=== PATIENT | female | born 1950 | race Caucasian/White ===

== ENCOUNTER 2019-06-17 18:36 | Emergency (ER) | payer MEDICARE, OTHER ==
[2019-06-17 19:04] LABS: #Basophils 0.1 thou/uL (0.0-0.2); #Eosinphils 0.2 thou/uL (0.0-0.7); #Lymphocytes 2.2 thou/uL (1.20-3.40); #Monocytes 0.4 thou/uL (0.11-0.59); #Neutrophils 3.3 thou/uL (1.40-6.50); %Basophils 1.7 % (0.0-1.0); %Eosinophils 3.6 % (0.0-10.0); %Lymphocytes 35.5 % (21.0-51.0); %Monocytes 6.9 % (0.0-10.0); %Neutrophils 52.2 % (42.0-75.0); Hemoglobin 13.9 g/dL (12.0-16.0); Mean Corpuscular HGB CONC 34.3 g/dL (32.0-36.0); Mean Corpuscular Hemoglobin 29.8 pg (27.0-31.0); Mean Corpuscular Volume 86.7 fL (78.0-98.0); Mean Platelet Volume 6.7 fL (7.4-10.4); Platelet Count 259 thou/uL (130-400); RBC Distribution Width 11.8 % (11.5-14.5); Red Blood Cell (RBC) Count 4.67 mill/uL (4.20-5.40); White Blood Cell (WBC) Count 6.3 thou/uL (4.8-10.8)
[2019-06-17 19:20] LABS: ALT (SGPT) 8 U/L (8-55); AST (SGOT) 14 U/L (5-34); Albumin 4.4 g/dL (3.4-4.8); Alkaline Phosphatase 84 U/L (40-110); Anion Gap 14 mmol/L (10-20); BUN (Urea Nitrogen) 9 mg/dL (9.8-20.1); Bilirubin, Total 0.3 mg/dL (0.2-1.2); Calc. Creatinine Clearance 0 mL/min (70-130); Calcium 9.8 mg/dL (7.8-10.44); Carbon Dioxide 25 mmol/L (23-31); Chloride 99 mmol/L (98-107); Estimated GFR-MDRD 80; Globulin 2.6 g/dL (2.4-3.5); Glucose 85 mg/dL (80-115); Lipase 23 U/L (8-78); Potassium 4.2 mmol/L (3.5-5.1); Sodium 134 mmol/L (136-145)
[2019-06-17] MEDS ORDERED: Ketorolac Tromethamine 30 MG/ML VIAL ONE (19:22)
--- NOTE | 2019-06-17 20:26 | ULT ---
Gallbladder ultrasound: Multiple grayscale images of right upper quadrant obtained according to protocol. INDICATION: Pain FINDINGS: Liver: Normal Gallbladder: There are multiple foci of mural-based increased echogenicity, subcentimeter in size, an d hyperechoic. No associated shadowing. The gallbladder is contracted. Gallbladder wall: Normal. A positive Rubio sign is not reported by the director sales. Common bile duct is normal. Ascites: None IMPRESSION: Foci of increased echogenicity along the gallbladder wall which may be on the basis of multiple gallb ladder polyps. Tumefactive sludge and/or adherent nonshadowing cholelithiasis are additional considerations. Contracted gallbladder.
== END 2019-06-17 21:05 | disposition home or self-care (01) ==
LOC: SCSER 18:36
DX: K82.4 Cholesterolosis of gallbladder (principal); E03.9 Hypothyroidism, unspecified; G43.909 Migraine, unspecified, not intractable, without status migrainosus; F41.9 Anxiety disorder, unspecified; F32.9 Major depressive disorder, single episode, unspecified; Z79.899 Other long term (current) drug therapy
CPT/HCPCS: 76705; 80053; 83690; 85025; 96374; J1885

== ENCOUNTER 2019-06-19 13:03 | Outpatient (CLI) | payer MEDICARE, OTHER ==
[~2019-06-19 13:03] MED LIST: Iopamidol 370 76% 100 ML VIAL ONE
--- NOTE | 2019-06-19 15:56 | CT ---
CT abdomen and pelvis with IV and oral contrast HISTORY: Abdominal pain and bloating. FINDINGS: Calcified granulomata at the lung bases. Bilateral breast implants partially visualized. An oval 1.7 cm low-density lesion involves the left adrenal gland. Hounsfield unit measurement and contrast administration precludes confirmation as an adenoma. Calcification within the arterial struc tures. Large amount of stool is present within the colon. The cecum is positioned within the left mid abdomen. 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 No ac tive pathology of this is evident. Dorsal column stimulator leads and electronic device in place. Urinary bladder is unremarkable. Degen erative changes lumbar spine. IMPRESSION: No acute abnormalities are demonstrated to explain abdominal pain. Incidental note of a left adrenal mass, 1.7 cm. Probably an adenoma, but further evaluation needed. Nilson munroe consider dedicated CT abdomen, with and without IV contrast, employing an adrenal adenoma protocol, for better characterization. Congenital anomaly of the colon. Cecum is in the mid left abdomen. Atherosclerosis.
== END 2019-06-19 13:04 | disposition home or self-care (01) ==
LOC: SCSCT 13:03
PROVIDERS: ATTEND Physician Assistant Medical
DX: R10.9 Unspecified abdominal pain (principal); R14.0 Abdominal distension (gaseous); E27.8 Other specified disorders of adrenal gland; Q43.9 Congenital malformation of intestine, unspecified; I70.90 Unspecified atherosclerosis
CPT/HCPCS: 74177; Q9967

== ENCOUNTER 2019-06-25 10:26 | Day surgery (SDC) | payer MEDICARE, OTHER ==
[2019-06-23 16:25] VITALS: BMI 28.7
[2019-06-23 17:33] LABS: #Basophils 0.1 thou/uL (0.0-0.2); #Eosinphils 0.3 thou/uL (0.0-0.7); #Lymphocytes 3.1 thou/uL (1.20-3.40); #Monocytes 0.6 thou/uL (0.11-0.59); #Neutrophils 4.2 thou/uL (1.40-6.50); %Eosinophils 3.1 % (0.0-10.0); %Lymphocytes 37.2 % (21.0-51.0); %Monocytes 7.8 % (0.0-10.0); %Neutrophils 50.8 % (42.0-75.0); Hemoglobin 14.2 g/dL (12.0-16.0); Mean Corpuscular HGB CONC 34.3 g/dL (32.0-36.0); Mean Corpuscular Hemoglobin 30.2 pg (27.0-31.0); Mean Platelet Volume 7.4 fL (7.4-10.4); Platelet Count 279 thou/uL (130-400); RBC Distribution Width 11.8 % (11.5-14.5); Red Blood Cell (RBC) Count 4.69 mill/uL (4.20-5.40); White Blood Cell (WBC) Count 8.2 thou/uL (4.8-10.8)
[2019-06-23 17:55] LABS: Anion Gap 11 mmol/L (10-20); BUN (Urea Nitrogen) 12 mg/dL (9.8-20.1); Calc. Creatinine Clearance 93 mL/min (70-130); Calcium 9.4 mg/dL (7.8-10.44); Carbon Dioxide 25 mmol/L (23-31); Chloride 97 mmol/L (98-107); Estimated GFR-MDRD 79; Glucose 78 mg/dL (80-115); Potassium 4.4 mmol/L (3.5-5.1); Sodium 129 mmol/L (136-145)
[2019-06-25] MEDS ORDERED: Bupivacaine/Epinephrine 0.25% 30 ML VIAL ONE (10:42)
[2019-06-25] MEDS ORDERED: Midazolam HCl 2 mg/2 ml Vial ONE (11:11)
[2019-06-25] MEDS ORDERED: Fentanyl 100 MCG/2 ML VIAL ONE ×2 (11:11→12:59)
[2019-06-25 11:29] LABS: ALT (SGPT) 9 U/L (8-55); AST (SGOT) 13 U/L (5-34); Albumin 4.4 g/dL (3.4-4.8); Alkaline Phosphatase 76 U/L (40-110); Bilirubin, Direct 0.2 mg/dL (0.1-0.3); Bilirubin, Total 0.4 mg/dL (0.2-1.2)
--- NOTE | 2019-06-25 16:16 | OP ---
DATE OF PROCEDURE: 06/25/2019 PREOPERATIVE DIAGNOSIS: Symptomatic gallstones. POSTOPERATIVE DIAGNOSIS: Symptomatic gallstones. PROCEDURE PERFORMED: Laparoscopic cholecystectomy. ANESTHESIA: General. ESTIMATED BLOOD LOSS: Minimal. COMPLICATIONS: None. SPECIMEN: Gallbladder. FINDINGS: Chronic cholecystitis. PROCEDURE IN DETAIL: The patient was taken to the operating room and laid supine on the operating room table. After general anesthetic was obtained, the abdomen was prepped and draped in a sterile fashion. A curved incision was made below the umbilicus. Cautery was used to dissect down to the umbilical fascia. Umbilical fascia was incised and held up using a Lico. The abdominal cavity was entered using a [place] clamp. Holding stitch of Vicryl was placed on each side of the fascia. Tucker trocar was placed. High-flow pneumoperitoneum was obtained. An upper midline 5 mm port and 2 right upper quadrant 5 mm ports were placed under direct camera visualization. The gallbladder was retracted from the gallbladder fossa. The peritoneum of the gallbladder was opened anteriorly and posteriorly. The critical view triangle was seen showing only the cystic duct and cystic artery branching from medial to lateral. There were no other branching structures. Two clips were placed proximally on the cystic duct and one laterally. It was cut using laparoscopic scissors. The cystic artery was taken in the same way. Electrocautery was then used to dissect the gallbladder out of the gallbladder fossa. The gallbladder was placed in an Endo catch bag and brought out through the Tucker. There was no bleeding or bile in the liver bed. The cystic duct stump and cystic artery stump were intact, without evidence of extravasation or bleeding. All port sites were infiltrated using local anesthesia. All ports were removed under camera visualization. Pneumoperitoneum was let down. The Vicryl was used to close the fascial defect below the umbilicus. All incisions were irrigated and closed using 4-0 Monocryl and Dermabond. The patient was en route to Recovery in stable condition. All instrument counts, needle counts and lap counts were correct. Job ID: [id number]
== END 2019-06-25 14:35 | disposition home or self-care (01) ==
LOC: SDC 10:26
PROVIDERS: ATTEND Surgery
PROC: 0FT44ZZ Resection of Gallbladder, Percutaneous Endoscopic Approach (ICD-10-PCS; principal; 2019-06-25)
DX: K81.1 Chronic cholecystitis (principal); F41.9 Anxiety disorder, unspecified; F32.9 Major depressive disorder, single episode, unspecified; Z79.899 Other long term (current) drug therapy; Z91.041 Radiographic dye allergy status
CPT/HCPCS: 36415; 80048; 80076; 85025; 88304; J0690; J2250; J3010

== ENCOUNTER 2021-09-20 19:32 | Inpatient (IN) | payer MEDICARE, OTHER ==
[2021-09-20 20:10] LABS: #Monocytes 0.5 thou/uL (0.11-0.59); #Neutrophils 2.9 thou/uL (1.40-6.50); %Basophils 0.9 % (0.0-1.0); %Eosinophils 0.1 % (0.0-10.0); %Lymphocytes 22.5 % (21.0-51.0); %Monocytes 11.7 % (0.0-10.0); %Neutrophils 64.8 % (42.0-75.0); Mean Corpuscular HGB CONC 34.8 g/dL (32.0-36.0); Mean Corpuscular Hemoglobin 30.4 pg (27.0-31.0); Mean Corpuscular Volume 87.4 fL (78.0-98.0); Mean Platelet Volume 7.1 fL (7.4-10.4); Platelet Count 243 thou/uL (130-400); RBC Distribution Width 12.7 % (11.5-14.5); Red Blood Cell (RBC) Count 4.59 mill/uL (4.20-5.40); White Blood Cell (WBC) Count 4.4 thou/uL (4.8-10.8)
[2021-09-20 20:37] LABS: ALT (SGPT) 13 U/L (8-55); AST (SGOT) 27 U/L (5-34); Alkaline Phosphatase 73 U/L (40-110); Anion Gap 16 mmol/L (10-20); BUN (Urea Nitrogen) 8 mg/dL (9.8-20.1); Bilirubin, Total 0.6 mg/dL (0.2-1.2); Calc. Creatinine Clearance 0 mL/min (70-130); Calcium 8.5 mg/dL (7.8-10.44); Carbon Dioxide 19 mmol/L (23-31); Chloride 98 mmol/L (98-107); Globulin 2.6 g/dL (2.4-3.5); Glucose 91 mg/dL (83-110); Potassium 3.5 mmol/L (3.5-5.1); Protein, Total 6.6 g/dL (5.8-8.1); Sodium 129 mmol/L (136-145)
[2021-09-20] MEDS ORDERED: Azithromycin 500 MG VIAL ONE (20:37)
[2021-09-20] MEDS ORDERED: Aspirin 325 MG TAB ONE (20:37)
[2021-09-20] MEDS ORDERED: cefTRIAXone\\ROCEPHIN 2 GM VIAL ONE (20:37)
[2021-09-20 21:07] LABS: Bilirubin Negative (Negative); Blood, Urine Negative (Negative); Clarity Clear (Clear); Glucose, Urine (Dipstick) Normal (Negative); Ketone, Urine Trace mg/dL (Negative); Leukocyte Negative Leu/uL (Negative); Nitrite Negative (Negative); Protein, Urine (Dipstick) Negative (Neg-Trace); Specific Gravity, Urine 1.015 (1.002-1.036); Urobilinogen Normal mg/dL (Less than 2)
[2021-09-20 21:08] LABS: Magnesium 1.7 mg/dL (1.6-2.6)
[2021-09-20 21:09] LABS: Acetaminophen Less than 6.0 mcg/mL (10.0-30.0); Alcohol Less than 10 mg/dL (Less than 10); Salicylate Less than 8.0 mg/dL (15.0-30.0)
[2021-09-20] MEDS ORDERED: Diltiazem 125 MG/25 ML ONE (21:09)
[2021-09-20 21:14] LABS: Amphetamine Not Detected (NotDetected); Barbiturates Screen Not Detected (NotDetected); Benzodiazepine Screen Not Detected (NotDetected); Cocaine Metabolite Screen Not Detected (NotDetected); Methadone Not Detected (NotDetected); Methamphetamine Not Detected (NotDetected); Opiate Screen Not Detected (NotDetected); Oxycodone Screen Not Detected (NotDetected); Phencyclidine (PCP) Not Detected (NotDetected); THC/Cannabinoid Screen Not Detected (NotDetected); Tricyclic Screen Not Detected (NotDetected)
[2021-09-20] MEDS ORDERED: Ondansetron ODT 4 MG TAB SL PRN (21:30)
[2021-09-20] MEDS ORDERED: Sodium Chloride 0.9% 1,000 ML IV SCH (21:30)
[2021-09-20] MEDS ORDERED: Ondansetron PF 4 MG/2 ML Vial IVP PRN (21:30)
[2021-09-20] MEDS ORDERED: Acetaminophen 325 MG TAB PO PRN (21:30)
[2021-09-20 23:33] LABS: Troponin I 0.017 ng/mL (< 0.028)
[2021-09-21] MEDS ORDERED: Guaifenesin DM 100-10/5 ML UDCUP PO PRN (02:04)
[2021-09-21] MEDS ORDERED: Calcium Carbonate 500 MG ChewTAB PO PRN (02:04)
[2021-09-21] MEDS ORDERED: Sodium Chloride 0.9% 1,000 ML IV SCH (02:43)
[2021-09-21 04:29] LABS: SARS-CoV-2 NAA Rapid Test DETECTED (NotDetected)
[2021-09-21] MEDS ORDERED: Pharmacy to Dose REMDESIVIR IVPB PRN (04:57)
[2021-09-21 05:43] LABS: Hemoglobin 13.5 g/dL (12.0-16.0); Mean Corpuscular HGB CONC 32.7 g/dL (32.0-36.0); Mean Corpuscular Hemoglobin 29.9 pg (27.0-31.0); Mean Corpuscular Volume 91.3 fL (78.0-98.0); Mean Platelet Volume 7.6 fL (7.4-10.4); Platelet Count 219 thou/uL (130-400); Red Blood Cell (RBC) Count 4.51 mill/uL (4.20-5.40); White Blood Cell (WBC) Count 4.5 thou/uL (4.8-10.8)
[2021-09-21 05:56] LABS: ALT (SGPT) 12 U/L (8-55); AST (SGOT) 23 U/L (5-34); Albumin 3.5 g/dL (3.4-4.8); Alkaline Phosphatase 63 U/L (40-110); Anion Gap 13 mmol/L (10-20); BUN (Urea Nitrogen) 7 mg/dL (9.8-20.1); Bilirubin, Total 0.4 mg/dL (0.2-1.2); Calc. Creatinine Clearance 0 mL/min (70-130); Calcium 8.2 mg/dL (7.8-10.44); Carbon Dioxide 20 mmol/L (23-31); Cardiac Risk 3.3 (Less than 4.5); Chloride 105 mmol/L (98-107); Cholesterol 150 mg/dl (< 200 Desired); Globulin 2.8 g/dL (2.4-3.5); Glucose 78 mg/dL (83-110); HDL Cholesterol 45 mg/dL (>60 Neg Risk); LDL Cholesterol, Calculated 87 mg/dL; Potassium 3.2 mmol/L (3.5-5.1); Protein, Total 6.3 g/dL (5.8-8.1); Sodium 135 mmol/L (136-145); Triglycerides 92 mg/dL (Less than 150)
[2021-09-21 05:58] LABS: Hemoglobin A1c 5.2 % (4.0-6.0)
[2021-09-21 06:12] LABS: Band 8 % (5-11); Burr Cells MODERATE= 6-15 cells (100X) (0-1/hpf); Elliptocytes SLIGHT = 2-5 cells (100X) (0-1/hpf); Lymphocytes 20 % (21-51); MDiff Complete? YES; Monocytes 11 % (0-10); Neutrophil 61 % (42-75); Platelet Morphology Comment Appears Adequate; Schistocytes SLIGHT = 2-5 cells (100X) (0-1/hpf)
[2021-09-21] MEDS ORDERED: Lorazepam 0.5 MG TAB PO PRN (06:58)
[2021-09-21] MEDS ORDERED: Potassium Chloride 20 MEQ TAB PO SCH (07:30)
[2021-09-21] MEDS ORDERED: Enoxaparin Sodium 40 MG/0.4 ML SYRINGE SC SCH (09:00)
[2021-09-21] MEDS: Diltiazem 125 MG in Sodium Chloride 0.9% 100 ML IVPB SCH ×2 (10:26→22:26)
[2021-09-21] MEDS ORDERED: ANTICOAG Communication Order-Pharmacy FS ONE (11:17)
[2021-09-21 11:43] LABS: Hemoglobin 13.3 g/dL (12.0-16.0); Platelet Count 223 thou/uL (130-400)
[2021-09-21] MEDS: Famotidine/PF 20 mg/2ml Vial SLOW IVP SCH ×2 (11:50→20:58)
[2021-09-21] MEDS: Ascorbic Acid 500 mg Chewable Tablet PO SCH (11:51)
[2021-09-21] MEDS: Cholecalciferol (Vitamin D3) 400 UNITS TAB PO SCH (11:51)
[2021-09-21] MEDS: Zinc Sulfate 220 MG CAP PO SCH (11:51)
[2021-09-21] MEDS ORDERED: FLU VACC QS2021-22(65YR UP)/PF 240 MCG/0.7 ML SYRINGE IM ONE (13:30)
[2021-09-21] MEDS ORDERED: Promethazine HCl 12.5 MG in Sodium Chloride 0.9% 50 ML IVPB PRN (17:54)
[2021-09-21] MEDS: cefTRIAXone\\ROCEPHIN 2 GM in Sodium Chloride 0.9% 100 ML IVPB SCH (20:55)
[2021-09-21] MEDS: Enoxaparin Sodium 80 MG/0.8 ML SYRINGE SC SCH (20:57)
[2021-09-21] MEDS: DULoxetine 60 MG CAP PO SCH (20:57)
[2021-09-21] MEDS: busPIRone HCl 10 MG TAB PO SCH (20:57)
[2021-09-21] MEDS: Rosuvastatin 5 MG TAB PO SCH (20:58)
[2021-09-21] MEDS: Sacubitril 49 MG/Valsartan 51 MG TABLET PO SCH (20:58)
[2021-09-21] MEDS: Azithromycin 500 MG in Sodium Chloride 0.9% 250 ML 250 ML IVPB SCH (22:26)
[2021-09-22] MEDS ORDERED: Diltiazem 125 MG in Sodium Chloride 0.9% 100 ML IVPB SCH (01:25)
[2021-09-22 08:32] LABS: Anion Gap 15 mmol/L (10-20); BUN (Urea Nitrogen) 8 mg/dL (9.8-20.1); Calc. Creatinine Clearance 125 mL/min (70-130); Calcium 8.2 mg/dL (7.8-10.44); Carbon Dioxide 18 mmol/L (23-31); Chloride 102 mmol/L (98-107); Glucose 93 mg/dL (83-110); Sodium 132 mmol/L (136-145)
[2021-09-22 08:33] LABS: Hemoglobin 12.6 g/dL (12.0-16.0); Mean Corpuscular HGB CONC 34.1 g/dL (32.0-36.0); Mean Platelet Volume 7.4 fL (7.4-10.4); Platelet Count 221 thou/uL (130-400); RBC Distribution Width 12.7 % (11.5-14.5); White Blood Cell (WBC) Count 3.9 thou/uL (4.8-10.8)
[2021-09-22 09:29] LABS: Band 12 % (5-11); Lymphocytes 20 % (21-51); MDiff Complete? YES; Monocytes 6 % (0-10); Neutrophil 60 % (42-75); RBC Morphology Normal; Reactive Lymphocytes 1 % (0-10)
[2021-09-22] MEDS: busPIRone HCl 10 MG TAB PO SCH ×2 (10:28→20:14)
[2021-09-22] MEDS: Aripiprazole 10 MG TAB PO SCH (10:28)
[2021-09-22] MEDS: Ascorbic Acid 500 mg Chewable Tablet PO SCH (10:29)
[2021-09-22] MEDS: Sacubitril 49 MG/Valsartan 51 MG TABLET PO SCH ×2 (10:29→20:15)
[2021-09-22] MEDS: DULoxetine 60 MG CAP PO SCH ×2 (10:29→20:14)
[2021-09-22] MEDS: Carvedilol 3.125 MG TAB PO SCH ×2 (10:29→15:38)
[2021-09-22] MEDS: Aspirin 81 mg Enteric Coated Tablet PO SCH (10:30)
[2021-09-22] MEDS: Enoxaparin Sodium 80 MG/0.8 ML SYRINGE SC SCH ×2 (10:49→20:14)
[2021-09-22] MEDS: Zinc Sulfate 220 MG CAP PO SCH (10:50)
[2021-09-22] MEDS: Cholecalciferol (Vitamin D3) 400 UNITS TAB PO SCH (10:50)
[2021-09-22] MEDS: Famotidine/PF 20 mg/2ml Vial SLOW IVP SCH ×2 (11:15→20:14)
[2021-09-22] MEDS ORDERED: Potassium Chloride 20 MEQ TAB PO SCH (14:45)
[2021-09-22] MEDS ORDERED: Acetaminophen 650 MG/20.3 ML UDCUP PO PRN (16:31)
[2021-09-22] MEDS ORDERED: Dexamethasone 4 mg/ml Vial SLOW IVP SCH (16:45)
[2021-09-22] MEDS: Dexamethasone 4 mg/ml Vial SLOW IVP SCH (16:50)
[2021-09-22] MEDS ORDERED: Carvedilol 3.125 MG TAB PO SCH (18:00)
[2021-09-22] MEDS: Azithromycin 500 MG in Sodium Chloride 0.9% 250 ML 250 ML IVPB SCH (20:10)
[2021-09-22] MEDS: Melatonin 3 MG TAB PO PRN (20:15)
[2021-09-22] MEDS: ALPRAZolam 0.25 MG TAB PO PRN (20:15)
[2021-09-22] MEDS: Rosuvastatin 5 MG TAB PO SCH (20:15)
[2021-09-22] MEDS: cefTRIAXone\\ROCEPHIN 2 GM in Sodium Chloride 0.9% 100 ML IVPB SCH (22:36)
[2021-09-23] MEDS: Dexamethasone 4 mg/ml Vial SLOW IVP SCH (10:08)
[2021-09-23] MEDS: Aspirin 81 mg Enteric Coated Tablet PO SCH (10:09)
[2021-09-23] MEDS: busPIRone HCl 10 MG TAB PO SCH ×2 (10:09→21:44)
[2021-09-23] MEDS: Carvedilol 6.25 MG TAB PO SCH ×2 (10:10→21:43)
[2021-09-23] MEDS: Aripiprazole 10 MG TAB PO SCH (10:10)
[2021-09-23] MEDS: Cholecalciferol (Vitamin D3) 400 UNITS TAB PO SCH (10:10)
[2021-09-23 12:41] LABS: Anion Gap 16 mmol/L (10-20); BUN (Urea Nitrogen) 11 mg/dL (9.8-20.1); Calc. Creatinine Clearance 114 mL/min (70-130); Calcium 8.7 mg/dL (7.8-10.44); Carbon Dioxide 18 mmol/L (23-31); Chloride 102 mmol/L (98-107); Glucose 113 mg/dL (83-110); Potassium 3.8 mmol/L (3.5-5.1); Sodium 132 mmol/L (136-145)
[2021-09-23] MEDS: Ascorbic Acid 500 mg Chewable Tablet PO SCH (15:56)
[2021-09-23] MEDS: DULoxetine 60 MG CAP PO SCH (15:56)
[2021-09-23] MEDS: Enoxaparin Sodium 80 MG/0.8 ML SYRINGE SC SCH (15:57)
[2021-09-23] MEDS: Zinc Sulfate 220 MG CAP PO SCH (15:57)
[2021-09-23] MEDS: Famotidine/PF 20 mg/2ml Vial SLOW IVP SCH ×2 (15:57→21:44)
[2021-09-23] MEDS: Sacubitril 49 MG/Valsartan 51 MG TABLET PO SCH (15:57)
[2021-09-23] MEDS: Promethazine 25 MG TAB PO PRN (16:03)
[2021-09-23] MEDS: Rosuvastatin 5 MG TAB PO SCH (21:44)
[2021-09-23] MEDS: ALPRAZolam 0.25 MG TAB PO PRN (21:44)
[2021-09-23] MEDS: cefTRIAXone\\ROCEPHIN 2 GM in Sodium Chloride 0.9% 100 ML IVPB SCH (21:45)
[2021-09-23] MEDS: Azithromycin 500 MG in Sodium Chloride 0.9% 250 ML 250 ML IVPB SCH (21:45)
[2021-09-24] MEDS: DULoxetine 60 MG CAP PO SCH ×3 (00:14→21:20)
[2021-09-24] MEDS: Enoxaparin Sodium 80 MG/0.8 ML SYRINGE SC SCH ×3 (00:16→21:20)
[2021-09-24] MEDS: Sacubitril 49 MG/Valsartan 51 MG TABLET PO SCH ×3 (00:17→21:20)
[2021-09-24 05:56] LABS: Hemoglobin 12.9 g/dL (12.0-16.0); Platelet Count 307 thou/uL (130-400)
[2021-09-24] MEDS: Aripiprazole 10 MG TAB PO SCH (07:56)
[2021-09-24] MEDS: Aspirin 81 mg Enteric Coated Tablet PO SCH (07:56)
[2021-09-24] MEDS: Carvedilol 6.25 MG TAB PO SCH ×2 (07:56→16:41)
[2021-09-24] MEDS: Ascorbic Acid 500 mg Chewable Tablet PO SCH (07:56)
[2021-09-24] MEDS: Cholecalciferol (Vitamin D3) 400 UNITS TAB PO SCH (07:57)
[2021-09-24] MEDS: busPIRone HCl 10 MG TAB PO SCH ×2 (07:57→21:20)
[2021-09-24] MEDS: Zinc Sulfate 220 MG CAP PO SCH (07:57)
[2021-09-24] MEDS: Famotidine/PF 20 mg/2ml Vial SLOW IVP SCH ×2 (07:58→21:20)
[2021-09-24] MEDS: Dexamethasone 4 mg/ml Vial SLOW IVP SCH (07:58)
[2021-09-24] MEDS: ALPRAZolam 0.25 MG TAB PO PRN (13:55)
[2021-09-24] MEDS: cefTRIAXone\\ROCEPHIN 2 GM in Sodium Chloride 0.9% 100 ML IVPB SCH (20:06)
[2021-09-24] MEDS: Melatonin 3 MG TAB PO PRN (21:20)
[2021-09-24] MEDS: Azithromycin 500 MG in Sodium Chloride 0.9% 250 ML 250 ML IVPB SCH (21:20)
[2021-09-24] MEDS: Rosuvastatin 5 MG TAB PO SCH (21:20)
[2021-09-24] MEDS: Promethazine 25 MG TAB PO PRN (23:39)
[2021-09-25 06:54] LABS: #Lymphocytes 0.9 thou/uL (1.20-3.40); #Monocytes 0.7 thou/uL (0.11-0.59); %Basophils 0.3 % (0.0-1.0); %Eosinophils 0.1 % (0.0-10.0); %Lymphocytes 13.1 % (21.0-51.0); %Neutrophils 75.5 % (42.0-75.0); Hemoglobin 13.7 g/dL (12.0-16.0); Mean Corpuscular HGB CONC 31.7 g/dL (32.0-36.0); Mean Corpuscular Hemoglobin 28.7 pg (27.0-31.0); Mean Corpuscular Volume 90.5 fL (78.0-98.0); Mean Platelet Volume 7.2 fL (7.4-10.4); Platelet Count 320 thou/uL (130-400); RBC Distribution Width 12.9 % (11.5-14.5); Red Blood Cell (RBC) Count 4.79 mill/uL (4.20-5.40); White Blood Cell (WBC) Count 6.6 thou/uL (4.8-10.8)
[2021-09-25 07:04] LABS: Anion Gap 15 mmol/L (10-20); BUN (Urea Nitrogen) 12 mg/dL (9.8-20.1); Calc. Creatinine Clearance 112 mL/min (70-130); Calcium 8.7 mg/dL (7.8-10.44); Carbon Dioxide 21 mmol/L (23-31); Chloride 103 mmol/L (98-107); Glucose 86 mg/dL (83-110); Potassium 3.3 mmol/L (3.5-5.1); Sodium 136 mmol/L (136-145)
[2021-09-25] MEDS: Aripiprazole 10 MG TAB PO SCH (09:00)
[2021-09-25] MEDS: Carvedilol 6.25 MG TAB PO SCH ×2 (09:00→17:50)
[2021-09-25] MEDS: Cholecalciferol (Vitamin D3) 400 UNITS TAB PO SCH (09:01)
[2021-09-25] MEDS: Ascorbic Acid 500 mg Chewable Tablet PO SCH (09:01)
[2021-09-25] MEDS: busPIRone HCl 10 MG TAB PO SCH ×2 (09:01→21:05)
[2021-09-25] MEDS: Aspirin 81 mg Enteric Coated Tablet PO SCH (09:01)
[2021-09-25] MEDS: DULoxetine 60 MG CAP PO SCH ×2 (09:01→21:05)
[2021-09-25] MEDS: Sacubitril 49 MG/Valsartan 51 MG TABLET PO SCH ×2 (09:02→21:04)
[2021-09-25] MEDS: Famotidine/PF 20 mg/2ml Vial SLOW IVP SCH ×2 (09:02→21:04)
[2021-09-25] MEDS: Enoxaparin Sodium 80 MG/0.8 ML SYRINGE SC SCH ×2 (09:02→21:04)
[2021-09-25] MEDS: Dexamethasone 4 mg/ml Vial SLOW IVP SCH (09:02)
[2021-09-25] MEDS: Zinc Sulfate 220 MG CAP PO SCH (09:02)
[2021-09-25] MEDS: Rosuvastatin 5 MG TAB PO SCH (21:04)
[2021-09-25] MEDS: Melatonin 3 MG TAB PO PRN (21:05)
[2021-09-25] MEDS: ALPRAZolam 0.25 MG TAB PO PRN (21:05)
[2021-09-25] MEDS: cefTRIAXone\\ROCEPHIN 2 GM in Sodium Chloride 0.9% 100 ML IVPB SCH (21:05)
[2021-09-25] MEDS: Azithromycin 500 MG in Sodium Chloride 0.9% 250 ML 250 ML IVPB SCH (22:34)
[2021-09-26 05:40] LABS: Band 2 % (5-11); Hemoglobin 12.9 g/dL (12.0-16.0); Lymphocytes 33 % (21-51); MDiff Complete? YES; Mean Corpuscular HGB CONC 32.9 g/dL (32.0-36.0); Mean Corpuscular Hemoglobin 29.1 pg (27.0-31.0); Mean Corpuscular Volume 88.4 fL (78.0-98.0); Mean Platelet Volume 6.9 fL (7.4-10.4); Monocytes 5 % (0-10); Neutrophil 60 % (42-75); Platelet Count 333 thou/uL (130-400); Platelet Morphology Comment Appears Adequate; RBC Distribution Width 12.6 % (11.5-14.5); RBC Morphology Normal; Red Blood Cell (RBC) Count 4.44 mill/uL (4.20-5.40); White Blood Cell (WBC) Count 5.6 thou/uL (4.8-10.8)
[2021-09-26 05:47] LABS: Anion Gap 13 mmol/L (10-20); BUN (Urea Nitrogen) 12 mg/dL (9.8-20.1); Calc. Creatinine Clearance 120 mL/min (70-130); Calcium 8.4 mg/dL (7.8-10.44); Carbon Dioxide 25 mmol/L (23-31); Chloride 102 mmol/L (98-107); Glucose 90 mg/dL (83-110); Sodium 137 mmol/L (136-145)
[2021-09-26 05:49] LABS: Potassium 2.8 mmol/L (3.5-5.1)
[2021-09-26] MEDS ORDERED: Electrolyte Replacement Protocol FS PRN (06:15)
[2021-09-26 06:16] LABS: Magnesium 2.1 mg/dL (1.6-2.6)
[2021-09-26] MEDS: Potassium Chloride 40 MEQ in Sodium Chloride 0.9% 250 ML 250 ML IVPB SCH ×2 (07:10→12:28)
[2021-09-26] MEDS: ALPRAZolam 0.25 MG TAB PO PRN (08:30)
[2021-09-26] MEDS: Sacubitril 49 MG/Valsartan 51 MG TABLET PO SCH ×3 (08:33→22:07)
[2021-09-26] MEDS: DULoxetine 60 MG CAP PO SCH ×3 (08:33→22:07)
[2021-09-26] MEDS: Ascorbic Acid 500 mg Chewable Tablet PO SCH ×2 (08:33→12:41)
[2021-09-26] MEDS: Enoxaparin Sodium 80 MG/0.8 ML SYRINGE SC SCH ×3 (08:33→22:03)
[2021-09-26] MEDS: Aspirin 81 mg Enteric Coated Tablet PO SCH ×2 (08:33→12:41)
[2021-09-26] MEDS: Carvedilol 6.25 MG TAB PO SCH ×3 (08:34→20:42)
[2021-09-26] MEDS: Zinc Sulfate 220 MG CAP PO SCH ×2 (08:35→12:36)
[2021-09-26] MEDS: Aripiprazole 10 MG TAB PO SCH ×2 (08:35→12:41)
[2021-09-26] MEDS: Famotidine/PF 20 mg/2ml Vial SLOW IVP SCH ×2 (08:36→22:03)
[2021-09-26] MEDS: Dexamethasone 4 mg/ml Vial SLOW IVP SCH (08:36)
[2021-09-26] MEDS: busPIRone HCl 10 MG TAB PO SCH ×3 (08:37→22:07)
[2021-09-26] MEDS: Cholecalciferol (Vitamin D3) 400 UNITS TAB PO SCH ×2 (08:38→12:37)
[2021-09-26] MEDS: Lorazepam 2 MG/ML VIAL SLOW IVP PRN ×2 (09:01→16:03)
[2021-09-26] MEDS: Labetalol HCl 100 MG/20 ML VIAL SLOW IVP PRN (17:40)
[2021-09-26] MEDS ORDERED: Haloperidol Lactate 5 MG/ML VIAL IM SCH (17:45)
[2021-09-26 18:58] LABS: Potassium 3.5 mmol/L (3.5-5.1)
[2021-09-26] MEDS: Dronabinol 2.5 MG CAP PO SCH (20:42)
[2021-09-26] MEDS: cefTRIAXone\\ROCEPHIN 2 GM in Sodium Chloride 0.9% 100 ML IVPB SCH (22:03)
[2021-09-26] MEDS: Azithromycin 500 MG in Sodium Chloride 0.9% 250 ML 250 ML IVPB SCH (22:03)
[2021-09-26] MEDS: Rosuvastatin 5 MG TAB PO SCH (22:07)
[2021-09-27] MEDS: Potassium Chloride 20 MEQ in Premix Bag 1 BAG IVPB SCH ×2 (00:09→02:14)
[2021-09-27 05:19] LABS: #Lymphocytes 1.8 thou/uL (1.20-3.40); #Neutrophils 4.6 thou/uL (1.40-6.50); %Basophils 0.3 % (0.0-1.0); %Eosinophils 0.2 % (0.0-10.0); %Lymphocytes 24.8 % (21.0-51.0); %Monocytes 12.9 % (0.0-10.0); %Neutrophils 61.9 % (42.0-75.0); Hemoglobin 12.6 g/dL (12.0-16.0); Mean Corpuscular HGB CONC 33.5 g/dL (32.0-36.0); Mean Corpuscular Hemoglobin 29.7 pg (27.0-31.0); Mean Corpuscular Volume 88.7 fL (78.0-98.0); Mean Platelet Volume 6.9 fL (7.4-10.4); Platelet Count 345 thou/uL (130-400); RBC Distribution Width 12.6 % (11.5-14.5); Red Blood Cell (RBC) Count 4.24 mill/uL (4.20-5.40); White Blood Cell (WBC) Count 7.4 thou/uL (4.8-10.8)
[2021-09-27 05:47] LABS: Anion Gap 14 mmol/L (10-20); BUN (Urea Nitrogen) 14 mg/dL (9.8-20.1); Calc. Creatinine Clearance 118 mL/min (70-130); Calcium 8.5 mg/dL (7.8-10.44); Carbon Dioxide 21 mmol/L (23-31); Chloride 107 mmol/L (98-107); Glucose 67 mg/dL (83-110); Magnesium 2.1 mg/dL (1.6-2.6); Potassium 3.4 mmol/L (3.5-5.1); Sodium 139 mmol/L (136-145)
[2021-09-27] MEDS ORDERED: Potassium Chloride 20 MEQ TAB PO SCH (06:45)
[2021-09-27] MEDS ORDERED: Potassium Chloride 40 MEQ in Sodium Chloride 0.9% 250 ML 250 ML IVPB SCH (06:45)
[2021-09-27] MEDS: Aspirin 81 mg Enteric Coated Tablet PO SCH (10:11)
[2021-09-27] MEDS: Ascorbic Acid 500 mg Chewable Tablet PO SCH (10:11)
[2021-09-27] MEDS: Aripiprazole 10 MG TAB PO SCH (10:11)
[2021-09-27] MEDS: Cholecalciferol (Vitamin D3) 400 UNITS TAB PO SCH (10:11)
[2021-09-27] MEDS: busPIRone HCl 10 MG TAB PO SCH ×2 (10:11→21:10)
[2021-09-27] MEDS: Dronabinol 2.5 MG CAP PO SCH ×2 (10:11→18:23)
[2021-09-27] MEDS: Carvedilol 6.25 MG TAB PO SCH (10:11)
[2021-09-27] MEDS: Zinc Sulfate 220 MG CAP PO SCH (10:12)
[2021-09-27] MEDS: Enoxaparin Sodium 80 MG/0.8 ML SYRINGE SC SCH (10:12)
[2021-09-27] MEDS: DULoxetine 60 MG CAP PO SCH ×2 (10:12→21:11)
[2021-09-27] MEDS: Sacubitril 49 MG/Valsartan 51 MG TABLET PO SCH ×2 (10:12→21:11)
[2021-09-27] MEDS: Famotidine/PF 20 mg/2ml Vial SLOW IVP SCH ×2 (10:32→21:11)
[2021-09-27] MEDS: Lorazepam 2 MG/ML VIAL SLOW IVP PRN ×2 (10:32→17:57)
[2021-09-27] MEDS: Dexamethasone 4 mg/ml Vial SLOW IVP SCH (10:32)
[2021-09-27 14:08] LABS: Potassium 4.1 mmol/L (3.5-5.1)
[2021-09-27] MEDS ORDERED: AA 4.25 %/CALCIUM/LYTES/D5W 2,000 ML IV SCH (18:00)
[2021-09-27] MEDS: Sodium Chloride 0.9% 1,000 ML IV SCH (19:35)
[2021-09-27] MEDS ORDERED: D5W-AA 4.25% with LYTES 1,000 ML IV SCH (21:00)
[2021-09-27] MEDS: cefTRIAXone\\ROCEPHIN 2 GM in Sodium Chloride 0.9% 100 ML IVPB SCH (21:07)
[2021-09-27] MEDS: Rosuvastatin 5 MG TAB PO SCH (21:11)
[2021-09-27] MEDS: Azithromycin 500 MG in Sodium Chloride 0.9% 250 ML 250 ML IVPB SCH (21:55)
[2021-09-27] MEDS: D5W-AA 4.25% with LYTES 1,000 ML IV SCH (21:55)
[2021-09-28] MEDS: Labetalol HCl 100 MG/20 ML VIAL SLOW IVP PRN (04:06)
[2021-09-28] MEDS: Lorazepam 2 MG/ML VIAL SLOW IVP PRN ×2 (04:41→22:44)
[2021-09-28 05:25] LABS: Anion Gap 14 mmol/L (10-20); BUN (Urea Nitrogen) 16 mg/dL (9.8-20.1); Calc. Creatinine Clearance 112 mL/min (70-130); Calcium 8.5 mg/dL (7.8-10.44); Carbon Dioxide 22 mmol/L (23-31); Chloride 102 mmol/L (98-107); Glucose 87 mg/dL (83-110); Potassium 3.2 mmol/L (3.5-5.1); Sodium 135 mmol/L (136-145)
[2021-09-28 05:28] LABS: Band 2 % (5-11); Hemoglobin 13.2 g/dL (12.0-16.0); Lymphocytes 15 % (21-51); MDiff Complete? YES; Mean Corpuscular Hemoglobin 30.6 pg (27.0-31.0); Mean Corpuscular Volume 87.3 fL (78.0-98.0); Monocytes 17 % (0-10); Neutrophil 66 % (42-75); Platelet Count 370 thou/uL (130-400); Platelet Morphology Comment Appears Adequate; RBC Distribution Width 12.6 % (11.5-14.5); RBC Morphology Normal; Red Blood Cell (RBC) Count 4.32 mill/uL (4.20-5.40); White Blood Cell (WBC) Count 9.2 thou/uL (4.8-10.8)
[2021-09-28] MEDS ORDERED: Magnesium 2 GM/50 ML 2 GM in Premix Bag 1 BAG IVPB SCH (06:00)
[2021-09-28] MEDS ORDERED: Potassium Chloride 40 MEQ in Sodium Chloride 0.9% 250 ML 250 ML IVPB SCH (06:00)
[2021-09-28] MEDS: Famotidine/PF 20 mg/2ml Vial SLOW IVP SCH ×2 (09:40→19:50)
[2021-09-28] MEDS: Dexamethasone 4 mg/ml Vial SLOW IVP SCH (09:40)
[2021-09-28] MEDS: Enoxaparin Sodium 40 MG/0.4 ML SYRINGE SC SCH (09:40)
[2021-09-28] MEDS: Dronabinol 2.5 MG CAP PO SCH ×2 (09:41→17:42)
[2021-09-28] MEDS: Aspirin 81 mg Enteric Coated Tablet PO SCH (09:41)
[2021-09-28] MEDS: busPIRone HCl 10 MG TAB PO SCH ×2 (09:41→19:14)
[2021-09-28] MEDS: Aripiprazole 10 MG TAB PO SCH (09:41)
[2021-09-28] MEDS: Cholecalciferol (Vitamin D3) 400 UNITS TAB PO SCH (09:41)
[2021-09-28] MEDS: Ascorbic Acid 500 mg Chewable Tablet PO SCH (09:41)
[2021-09-28] MEDS: DULoxetine 60 MG CAP PO SCH ×2 (09:42→19:14)
[2021-09-28] MEDS: Zinc Sulfate 220 MG CAP PO SCH (09:42)
[2021-09-28] MEDS: Sacubitril 49 MG/Valsartan 51 MG TABLET PO SCH ×2 (09:42→19:15)
[2021-09-28] MEDS: D5W-AA 4.25% with LYTES 1,000 ML IV SCH (12:27)
[2021-09-28] MEDS: Sodium Chloride 0.9% 1,000 ML IV SCH (15:13)
[2021-09-28] MEDS: Rosuvastatin 5 MG TAB PO SCH (19:14)
[2021-09-28] MEDS: Azithromycin 500 MG in Sodium Chloride 0.9% 250 ML 250 ML IVPB SCH (19:49)
[2021-09-28] MEDS: cefTRIAXone\\ROCEPHIN 2 GM in Sodium Chloride 0.9% 100 ML IVPB SCH (19:49)
[2021-09-29 07:32] LABS: Magnesium 2.2 mg/dL (1.6-2.6)
[2021-09-29] MEDS ORDERED: Metoprolol Tartrate 5 MG/5 ML VIAL IVP PRN (08:11)
[2021-09-29] MEDS: Famotidine/PF 20 mg/2ml Vial SLOW IVP SCH ×2 (08:12→21:38)
[2021-09-29] MEDS: Enoxaparin Sodium 40 MG/0.4 ML SYRINGE SC SCH (08:12)
[2021-09-29] MEDS: Dexamethasone 4 mg/ml Vial SLOW IVP SCH (08:12)
[2021-09-29] MEDS: Furosemide 20 MG/2 ML VIAL SLOW IVP SCH (08:15)
[2021-09-29] MEDS ORDERED: Potassium Chloride 20 MEQ TAB PO SCH (08:15)
[2021-09-29] MEDS: Dronabinol 2.5 MG CAP PO SCH ×2 (08:33→14:33)
[2021-09-29] MEDS: Aripiprazole 10 MG TAB PO SCH (08:34)
[2021-09-29] MEDS: Ascorbic Acid 500 mg Chewable Tablet PO SCH (08:34)
[2021-09-29] MEDS: DULoxetine 60 MG CAP PO SCH ×2 (08:34→21:00)
[2021-09-29] MEDS: Aspirin 81 mg Enteric Coated Tablet PO SCH (08:34)
[2021-09-29] MEDS: busPIRone HCl 10 MG TAB PO SCH ×2 (08:34→21:00)
[2021-09-29] MEDS: Sacubitril 49 MG/Valsartan 51 MG TABLET PO SCH ×2 (08:34→21:01)
[2021-09-29] MEDS: Cholecalciferol (Vitamin D3) 400 UNITS TAB PO SCH (08:34)
[2021-09-29] MEDS: Zinc Sulfate 220 MG CAP PO SCH (08:35)
[2021-09-29 10:27] VITALS: BMI 28.3
[2021-09-29] MEDS: hydrALAZINE 20 MG/ML VIAL SLOW IVP SCH ×2 (11:56→17:02)
[2021-09-29] MEDS: Rosuvastatin 5 MG TAB PO SCH (21:00)
[2021-09-29] MEDS: cefTRIAXone\\ROCEPHIN 2 GM in Sodium Chloride 0.9% 100 ML IVPB SCH (21:36)
[2021-09-29] MEDS: Azithromycin 500 MG in Sodium Chloride 0.9% 250 ML 250 ML IVPB SCH (22:30)
[2021-09-30] MEDS: hydrALAZINE 20 MG/ML VIAL SLOW IVP SCH ×4 (00:30→19:29)
[2021-09-30] MEDS: Dexamethasone 4 mg/ml Vial SLOW IVP SCH (09:22)
[2021-09-30] MEDS: Furosemide 20 MG/2 ML VIAL SLOW IVP SCH (09:22)
[2021-09-30] MEDS: Famotidine/PF 20 mg/2ml Vial SLOW IVP SCH ×2 (09:22→20:41)
[2021-09-30] MEDS: Aripiprazole 10 MG TAB PO SCH (09:23)
[2021-09-30] MEDS: Enoxaparin Sodium 40 MG/0.4 ML SYRINGE SC SCH (09:23)
[2021-09-30] MEDS: Aspirin 81 mg Enteric Coated Tablet PO SCH (09:23)
[2021-09-30] MEDS: Ascorbic Acid 500 mg Chewable Tablet PO SCH (09:23)
[2021-09-30] MEDS: Dronabinol 2.5 MG CAP PO SCH ×2 (09:23→15:55)
[2021-09-30] MEDS: Cholecalciferol (Vitamin D3) 400 UNITS TAB PO SCH (09:24)
[2021-09-30] MEDS: busPIRone HCl 10 MG TAB PO SCH ×2 (09:24→20:40)
[2021-09-30] MEDS: DULoxetine 60 MG CAP PO SCH ×2 (09:24→20:40)
[2021-09-30] MEDS: Sacubitril 49 MG/Valsartan 51 MG TABLET PO SCH ×2 (09:24→20:45)
[2021-09-30] MEDS: Zinc Sulfate 220 MG CAP PO SCH (09:25)
[2021-09-30 11:12] LABS: Anion Gap 19 mmol/L (10-20); BUN (Urea Nitrogen) 23 mg/dL (9.8-20.1); Calc. Creatinine Clearance 112 mL/min (70-130); Calcium 9.4 mg/dL (7.8-10.44); Carbon Dioxide 13 mmol/L (23-31); Chloride 109 mmol/L (98-107); Glucose 87 mg/dL (83-110); Potassium 4.1 mmol/L (3.5-5.1); Sodium 137 mmol/L (136-145)
[2021-09-30 11:16] LABS: Band 3 % (5-11); Eosinophils 1 % (0-10); Hemoglobin 16.4 g/dL (12.0-16.0); Lymphocytes 27 % (21-51); MDiff Complete? YES; Mean Corpuscular HGB CONC 32.8 g/dL (32.0-36.0); Mean Corpuscular Hemoglobin 29.9 pg (27.0-31.0); Mean Corpuscular Volume 91.2 fL (78.0-98.0); Mean Platelet Volume 7.8 fL (7.4-10.4); Monocytes 6 % (0-10); Neutrophil 63 % (42-75); Platelet Count 257 thou/uL (130-400); RBC Distribution Width 13.4 % (11.5-14.5); Red Blood Cell (RBC) Count 5.47 mill/uL (4.20-5.40); White Blood Cell (WBC) Count 7.7 thou/uL (4.8-10.8)
[2021-09-30] MEDS: Lorazepam 2 MG/ML VIAL SLOW IVP PRN (14:53)
[2021-09-30] MEDS ORDERED: Ziprasidone 20 MG VIAL IM SCH (18:00)
[2021-09-30] MEDS ORDERED: Sterile Water 10 ML ONE (18:44)
[2021-09-30] MEDS ORDERED: Sterile Water 10 ML VIAL FS PRN (19:00)
[2021-09-30] MEDS: D5W-AA 4.25% with LYTES 1,000 ML IV SCH (19:30)
[2021-09-30] MEDS: Rosuvastatin 5 MG TAB PO SCH (20:50)
[2021-10-01] MEDS: hydrALAZINE 20 MG/ML VIAL SLOW IVP SCH ×4 (00:35→18:21)
[2021-10-01] MEDS: Dronabinol 2.5 MG CAP PO SCH (09:18)
[2021-10-01] MEDS: Aripiprazole 10 MG TAB PO SCH (09:21)
[2021-10-01] MEDS: Zinc Sulfate 220 MG CAP PO SCH (09:23)
[2021-10-01] MEDS: Sacubitril 49 MG/Valsartan 51 MG TABLET PO SCH ×2 (09:23→22:00)
[2021-10-01] MEDS: DULoxetine 60 MG CAP PO SCH ×2 (09:23→21:01)
[2021-10-01] MEDS: Aspirin 81 mg Enteric Coated Tablet PO SCH (09:23)
[2021-10-01] MEDS: busPIRone HCl 10 MG TAB PO SCH ×2 (09:23→21:01)
[2021-10-01] MEDS: Famotidine/PF 20 mg/2ml Vial SLOW IVP SCH ×2 (09:24→21:02)
[2021-10-01] MEDS: Furosemide 20 MG/2 ML VIAL SLOW IVP SCH (09:24)
[2021-10-01] MEDS: Dexamethasone 4 mg/ml Vial SLOW IVP SCH (09:24)
[2021-10-01] MEDS: Enoxaparin Sodium 40 MG/0.4 ML SYRINGE SC SCH (09:25)
[2021-10-01] MEDS: D5W-AA 4.25% with LYTES 1,000 ML IV SCH ×2 (09:26→22:00)
[2021-10-01] MEDS: Ascorbic Acid 500 mg Chewable Tablet PO SCH (09:30)
[2021-10-01] MEDS: Cholecalciferol (Vitamin D3) 400 UNITS TAB PO SCH (12:37)
[2021-10-01] MEDS: Lorazepam 2 MG/ML VIAL SLOW IVP PRN (15:23)
[2021-10-01] MEDS ORDERED: Metoprolol Tartrate 25 MG TAB PO SCH (16:30)
[2021-10-01] MEDS: traMADol HCl 50 MG TAB PO PRN (17:01)
[2021-10-01] MEDS: ALPRAZolam 0.25 MG TAB PO PRN (17:01)
[2021-10-01] MEDS: Rosuvastatin 5 MG TAB PO SCH (22:00)
[2021-10-02] MEDS: hydrALAZINE 20 MG/ML VIAL SLOW IVP SCH ×4 (00:42→17:22)
[2021-10-02] MEDS ORDERED: Labetalol HCl 100 MG/20 ML VIAL ONE (07:55)
[2021-10-02] MEDS: DULoxetine 60 MG CAP PO SCH ×2 (08:56→20:11)
[2021-10-02] MEDS: Zinc Sulfate 220 MG CAP PO SCH (08:56)
[2021-10-02] MEDS: Enoxaparin Sodium 40 MG/0.4 ML SYRINGE SC SCH (08:56)
[2021-10-02] MEDS: Aripiprazole 10 MG TAB PO SCH (08:56)
[2021-10-02] MEDS: Ascorbic Acid 500 mg Chewable Tablet PO SCH (08:56)
[2021-10-02] MEDS: busPIRone HCl 10 MG TAB PO SCH ×2 (08:56→20:11)
[2021-10-02] MEDS: Sacubitril 49 MG/Valsartan 51 MG TABLET PO SCH ×2 (08:56→20:12)
[2021-10-02] MEDS: Cholecalciferol (Vitamin D3) 400 UNITS TAB PO SCH (08:56)
[2021-10-02] MEDS: Aspirin 81 mg Enteric Coated Tablet PO SCH (08:56)
[2021-10-02] MEDS: Famotidine/PF 20 mg/2ml Vial SLOW IVP SCH ×2 (08:57→20:03)
[2021-10-02] MEDS: Furosemide 20 MG/2 ML VIAL SLOW IVP SCH ×2 (08:57→09:02)
[2021-10-02] MEDS: Metoprolol Tartrate 25 MG TAB PO SCH ×2 (09:00→20:27)
[2021-10-02] MEDS: D5W-AA 4.25% with LYTES 1,000 ML IV SCH (10:45)
[2021-10-02] MEDS: traMADol HCl 50 MG TAB PO PRN (12:00)
[2021-10-02] MEDS: ALPRAZolam 0.25 MG TAB PO PRN (12:00)
[2021-10-03] MEDS: hydrALAZINE 20 MG/ML VIAL SLOW IVP SCH ×4 (01:19→18:28)
[2021-10-03] MEDS: Promethazine 25 MG TAB PO PRN (02:18)
[2021-10-03] MEDS: ALPRAZolam 0.25 MG TAB PO PRN (02:19)
[2021-10-03 09:09] LABS: #Eosinphils 0.2 thou/uL (0.0-0.7); #Lymphocytes 2.3 thou/uL (1.20-3.40); #Monocytes 1.2 thou/uL (0.11-0.59); #Neutrophils 7.6 thou/uL (1.40-6.50); %Basophils 0.1 % (0.0-1.0); %Eosinophils 1.4 % (0.0-10.0); %Lymphocytes 20.4 % (21.0-51.0); %Monocytes 10.9 % (0.0-10.0); %Neutrophils 67.2 % (42.0-75.0); Hemoglobin 13.8 g/dL (12.0-16.0); Mean Corpuscular HGB CONC 32.9 g/dL (32.0-36.0); Mean Corpuscular Hemoglobin 29.7 pg (27.0-31.0); Mean Corpuscular Volume 90.3 fL (78.0-98.0); Mean Platelet Volume 7.5 fL (7.4-10.4); Platelet Count 345 thou/uL (130-400); RBC Distribution Width 13.2 % (11.5-14.5); Red Blood Cell (RBC) Count 4.64 mill/uL (4.20-5.40); White Blood Cell (WBC) Count 11.4 thou/uL (4.8-10.8)
[2021-10-03 09:21] LABS: Anion Gap 11 mmol/L (10-20); BUN (Urea Nitrogen) 26 mg/dL (9.8-20.1); Calc. Creatinine Clearance 89 mL/min (70-130); Calcium 9.8 mg/dL (7.8-10.44); Carbon Dioxide 28 mmol/L (23-31); Chloride 103 mmol/L (98-107); Glucose 72 mg/dL (83-110); Potassium 3.7 mmol/L (3.5-5.1); Sodium 138 mmol/L (136-145)
[2021-10-03] MEDS: Cholecalciferol (Vitamin D3) 400 UNITS TAB PO SCH (09:47)
[2021-10-03] MEDS: Zinc Sulfate 220 MG CAP PO SCH (09:47)
[2021-10-03] MEDS: Sacubitril 49 MG/Valsartan 51 MG TABLET PO SCH (09:47)
[2021-10-03] MEDS: Famotidine/PF 20 mg/2ml Vial SLOW IVP SCH (09:48)
[2021-10-03] MEDS: Aspirin 81 mg Enteric Coated Tablet PO SCH (09:48)
[2021-10-03] MEDS: Metoprolol Tartrate 25 MG TAB PO SCH (09:48)
[2021-10-03] MEDS: Ascorbic Acid 500 mg Chewable Tablet PO SCH (09:48)
[2021-10-03] MEDS: Enoxaparin Sodium 40 MG/0.4 ML SYRINGE SC SCH (09:48)
[2021-10-03] MEDS: DULoxetine 60 MG CAP PO SCH (09:48)
[2021-10-03] MEDS: Aripiprazole 10 MG TAB PO SCH (09:48)
[2021-10-03] MEDS: Furosemide 20 MG/2 ML VIAL SLOW IVP SCH (09:56)
[2021-10-03] MEDS: busPIRone HCl 10 MG TAB PO SCH (09:56)
[2021-10-03] MEDS: Lorazepam 2 MG/ML VIAL SLOW IVP PRN ×2 (12:24→19:14)
[2021-10-03 18:29] VITALS: BP 113/76; TEMP 97.7
== END 2021-10-03 20:10 | DRG 177 ==
LOC: ERS 19:32 → ERHOLD 21:20 → 2SW 09-21 08:19 → OBSVTOIN 09-21 14:29 → 2NO 09-26 19:41 → T4-A 09-28 17:21
PROVIDERS: ADMIT Student in an Organized Health Care Education/Training Program; ATTEND Internal Medicine
PROC: 8E0ZXY6 Isolation (ICD-10-PCS; principal; 2021-09-21)
PROC: 3E0333Z Introduction of Anti-inflammatory into Peripheral Vein, Percutaneous Approach (ICD-10-PCS; 2021-09-22)
DX: U07.1 COVID-19 (principal); J12.82 Pneumonia due to coronavirus disease 2019; G93.41 Metabolic encephalopathy; J96.01 Acute respiratory failure with hypoxia; E87.1 Hypo-osmolality and hyponatremia; I50.32 Chronic diastolic (congestive) heart failure; E03.9 Hypothyroidism, unspecified; M81.0 Age-related osteoporosis without current pathological fracture; G43.909 Migraine, unspecified, not intractable, without status migrainosus; G89.29 Other chronic pain; E87.5 Hyperkalemia; F41.9 Anxiety disorder, unspecified; F32.A Depression, unspecified; E78.5 Hyperlipidemia, unspecified; I48.91 Unspecified atrial fibrillation; I11.0 Hypertensive heart disease with heart failure; I34.0 Nonrheumatic mitral (valve) insufficiency; E87.6 Hypokalemia; Z88.8 Allergy status to other drugs, medicaments and biological substances; I25.2 Old myocardial infarction; Z90.49 Acquired absence of other specified parts of digestive tract; Z79.82 Long term (current) use of aspirin; Z79.899 Other long term (current) drug therapy
CPT/HCPCS: 36415; 36416; 51701; 70450; 70496; 70498; 71045; 80048; 80053; 80061; 80306; 80307; 81003; 82140; 82565; 83036; 83605; 83735; 83880; 83930; 83935; 84300; 84443; 84484; 85014; 85018; 85025; 85049; 85652; 86140; 87040; 87086; 93005; 93010; 93306; 96365; 96366; 96367; 96376; G0378; J0360; J0456; J0696; J1100; J1630; J1650; J1940; J2060; J2550; J3475; J3480; J3486; J3490; J7050; Q0169; Q9967; S0028; U0002

== ENCOUNTER 2025-06-02 10:15 | Emergency (ER) | payer MEDICARE, OTHER ==
[2025-06-02] MEDS ORDERED: Ondansetron PF 4 MG/2 ML Vial ONE (11:35)
[2025-06-02 11:53] LABS: ALT (SGPT) 16 U/L (Less than 34); AST (SGOT) 22 U/L (11-34); Albumin 4.1 g/dL (3.1-4.5); Alkaline Phosphatase 62 U/L (40-110); Anion Gap 11 mmol/L (10-20); BUN (Urea Nitrogen) 8 mg/dL (9.8-20.1); Bilirubin, Total 0.5 mg/dL (0.3-1.2); Calc. Creatinine Clearance 0 mL/min (70-130); Calcium 9.3 mg/dL (7.8-10.44); Carbon Dioxide 24 mmol/L (23-31); Chloride 104 mmol/L (98-107); Globulin 2.1 g/dL (2.4-3.5); Glucose 106 mg/dL (83-110); Lipase 16 U/L (8-78); Potassium 4.3 mmol/L (3.5-5.1); Sodium 135 mmol/L (136-145)
[2025-06-02 11:57] LABS: #Basophils 0.05 10x3/uL (0.0-0.2); #Eosinophils 0.05 10x3/uL (0.0-0.7); #Monocytes 0.56 10x3/uL (0.11-0.59); #Neutrophils 3.77 10x3/uL (1.40-6.50); %Basophils 0.9 % (0.0-1.0); %Eosinophils 0.9 % (0.0-10.0); %Lymphocytes 22.6 % (21.0-51.0); %Monocytes 9.7 % (0.0-10.0); %Neutrophils 65.6 % (42.0-75.0); Hematocrit 39.6 % (36.0-47.0); Hemoglobin 13.8 g/dL (12.0-16.0); Mean Corpuscular Hemoglobin 31.4 pg (27.0-31.0); Mean Corpuscular Volume 90.0 fL (78.0-98.0); Platelet Count 178 10x3/uL (130-400); Red Blood Cell (RBC) Count 4.40 mill/uL (4.20-5.40); White Blood Cell (WBC) Count 5.75 10x3/uL (4.8-10.8)
[2025-06-02 12:03] LABS: Bacteria/HPF None Seen HPF (None Seen); CAUTI Indications for Culture Pelvic or flank pain; Glucose, Urine (Dipstick) Normal (Negative); Leukocyte Negative Leu/uL (Negative); Protein, Urine (Dipstick) Negative (Neg-Trace); RBC/HPF 0-3 HPF (0-3); Specific Gravity, Urine 1.014 (1.002-1.036); WBC/HPF 0-3 HPF (0-3)
[2025-06-02 12:10] LABS: Urine Culture Reflex No No
== END 2025-06-02 12:17 | disposition home or self-care (01) ==
LOC: ERS 10:15
DX: K59.00 Constipation, unspecified (principal); E86.0 Dehydration; Z79.899 Other long term (current) drug therapy
CPT/HCPCS: 71045; 80053; 81001; 83690; 84484; 85025; 93005; 99284; J2060; J2270

== ENCOUNTER 2025-09-01 11:41 | Emergency (ER) | payer MEDICARE, OTHER ==
[2025-09-01 12:10] LABS: #Basophils 0.08 10x3/uL (0.0-0.2); #Eosinophils 0.15 10x3/uL (0.0-0.7); #Monocytes 0.48 10x3/uL (0.11-0.59); #Neutrophils 6.11 10x3/uL (1.40-6.50); %Basophils 0.9 % (0.0-1.0); %Eosinophils 1.8 % (0.0-10.0); %Lymphocytes 19.2 % (21.0-51.0); %Monocytes 5.6 % (0.0-10.0); %Neutrophils 71.8 % (42.0-75.0); Hematocrit 38.8 % (36.0-47.0); Hemoglobin 13.0 g/dL (12.0-16.0); Mean Corpuscular Hemoglobin 29.2 pg (27.0-31.0); Mean Corpuscular Volume 87.2 fL (78.0-98.0); Platelet Count 300 10x3/uL (130-400); Red Blood Cell (RBC) Count 4.45 mill/uL (4.20-5.40); White Blood Cell (WBC) Count 8.51 10x3/uL (4.8-10.8)
[2025-09-01 12:27] LABS: ALT (SGPT) 17 U/L (Less than 34); AST (SGOT) 26 U/L (11-34); Albumin 3.6 g/dL (3.1-4.5); Alkaline Phosphatase 70 U/L (40-110); Anion Gap 14 mmol/L (10-20); BUN (Urea Nitrogen) 7 mg/dL (9.8-20.1); Bilirubin, Total 0.5 mg/dL (0.3-1.2); Calc. Creatinine Clearance 0 mL/min (70-130); Calcium 9.6 mg/dL (7.8-10.44); Carbon Dioxide 23 mmol/L (23-31); Chloride 107 mmol/L (98-107); Globulin 3.1 g/dL (2.4-3.5); Glucose 91 mg/dL (83-110); Lipase 18 U/L (8-78); Potassium 3.9 mmol/L (3.5-5.1); Sodium 140 mmol/L (136-145)
[2025-09-01 12:30] LABS: Acetaminophen Less than 10 mcg/mL (Less than 10); Salicylate Less than 8.0 mg/dL (Less than 8.0)
[2025-09-01 13:21] LABS: CAUTI Indications for Culture Dysuria,urgency,freq; Glucose, Urine (Dipstick) Normal (Negative); Leukocyte 75 Leu/uL (Negative); Protein, Urine (Dipstick) Negative (Neg-Trace); RBC/HPF None Seen HPF (0-3); Specific Gravity, Urine 1.008 (1.002-1.036); WBC/HPF 0-3 HPF (0-3)
[2025-09-01 13:23] LABS: Bacteria/HPF 1+ HPF (None Seen)
[2025-09-01 13:24] LABS: Urine Culture Reflex No No
[2025-09-01] MEDS ORDERED: HYDROcodone/Acetaminophen 5/325 mg Tablet ONE (13:28)
[2025-09-01 13:33] LABS: Cocaine Metabolite Screen Negative (Negative); THC/Cannabinoid Screen Negative (Negative); Tricyclic Screen Negative (Negative)
[2025-09-01] MEDS ORDERED: diphenhydrAMINE 50 MG/ML VIAL ONE (14:42)
[2025-09-01] MEDS ORDERED: Famotidine/PF 20 mg/2ml Vial ONE (14:43)
[2025-09-01] MEDS ORDERED: Iopamidol-370 76% 500 ML MDV (1 ML CHARGE) ONE (17:12)
== END 2025-09-01 16:55 | disposition home or self-care (01) ==
LOC: ERS 11:41
DX: K59.00 Constipation, unspecified (principal); J18.9 Pneumonia, unspecified organism; R41.0 Disorientation, unspecified; I25.2 Old myocardial infarction
CPT/HCPCS: 70450; 71045; 74177; 80306; 80307; 81001; 82140; 83605; 83690; 84484; 87428; 93005; 94760; 96361; 96374; 96375; 99285; J1200; J1308; J2919; Q9967; 80053; 84443; 85025